=== PATIENT | female | born 1950 | race American Indian/Alaskan Native ===

== ENCOUNTER 2016-09-07 14:09 | Emergency (ER) | payer MEDICARE ==
[2016-09-07 14:28] VITALS: BP 155/101
--- NOTE | 2016-09-07 14:28 | Emergency Department Report ---
Chief Complaint: Back Pain/Injury Stated Complaint: BACK PAIN Time Seen by Provider: 09/07/16 14:24 - HPI History of Present Illness: PT reports left sided back pain x a few days. PT also requesting that an area in her "privates" be checked. - ROS Review of Systems: + back pain - dysuria - Exam Physical Exam: PT looks well, non toxic steady gait no vertebral tenderness, no cva tenderness tom MSE screening note: Focused history and physical exam performed. Due to findings the following was ordered: ED Disposition for MSE Condition: Stable
--- NOTE | 2016-09-11 11:11 | ED Elopement Review ---
ED Pt Elopement review - Call Back decision Pt Call Back Decision: No action required
== END 2016-09-07 20:40 | disposition left against medical advice (07) ==
LOC: ED 14:09
DX: M54.9 Dorsalgia, unspecified (principal); Z53.21 Procedure and treatment not carried out due to patient leaving prior to being seen by health care provider
CPT/HCPCS: 93005; 93010

== ENCOUNTER 2016-09-16 22:10 | Emergency (ER) | payer MEDICARE ==
[2016-09-17 00:10] LABS: Urine Drugs of Abuse Note Disclamer
[2016-09-17 00:19] LABS: Bilirubin,Urine NEG (Negative); Blood,Urine SM (Negative); Ketones,Urine 20 mg/dL (Negative); Leukocyte Esterase,Urine MOD (Negative); Mucus,Urine FEW /HPF; Nitrite,Urine NEG (Negative); Protein,Urine <15 mg/dL mg/dL (Negative)
[2016-09-17 00:24] LABS: Basophils % (Auto) 0.7 % (0.0-1.8); Eosinophils % (Auto) 2.7 % (0.0-4.3); Hematocrit 34.5 % (30.3-42.9); Hemoglobin 11.4 gm/dl (10.1-14.3); Mean Corpuscular HGB Conc 33 % (30-34); Mean Corpuscular Hemoglobin 31 pg (28-32); Mean Corpuscular Volume 95 fl (79-97); Platelet Count 211 K/mm3 (140-440); Red Blood Count 3.66 M/mm3 (3.65-5.03); Red Cell Distribution Width 13.8 % (13.2-15.2); White Blood Count 5.3 K/mm3 (4.5-11.0)
[2016-09-17 00:42] LABS: BUN/Creatinine Ratio 32.72; Calcium 9.7 mg/dL (8.4-10.2); Chloride 105.4 mmol/L (98-107); Potassium 4.2 mmol/L (3.6-5.0)
--- NOTE | 2016-09-17 03:46 | Emergency Department Report ---
ED Psych HPI - General Chief Complaint: Psych Stated Complaint: MH EVAL/HIGH BP Time Seen by Provider: 09/17/16 02:53 Source: patient Mode of arrival: Ambulatory - History of Present Illness Initial Comments: Pt is a 66 yr old female with a h/o schizophrenia and bipolar disorder noncompliant on meds presenting with acute psychosis with daughter. Currently the patient lives alone and has been hearing voices, which she reports is the devil, telling her to do things and telling her the devil is coming for her children. As per daughter the daughter has been wandering around outside for hours and recently called her daughter at 5am and left the house b/c the devil told her to leave the house. Pt denies any SI/HI. Pt lives alone and 30 minutes from her daughter. Pt has no other complaints - Related Data Allergies Allergy/AdvReac Type Severity Reaction Status Date / Time No Known Allergies Allergy Verified 09/07/16 14:29 ED Review of Systems ROS: Stated complaint: MH EVAL/HIGH BP Other details as noted in HPI Comment: All other systems reviewed and negative ED Past Medical Hx - Past Medical History Previous Medical History?: Yes Hx Hypertension: Yes Hx Psychiatric Treatment: Yes (SCHIZO/BIPOLAR) - Surgical History Past Surgical History?: No - Social History Smoking Status: Never Smoker Substance Use Type: None ED Physical Exam - General Limitations: No Limitations General appearance: alert, in no apparent distress - Head Head exam: Present: atraumatic, normocephalic - Eye Eye exam: Present: normal appearance - ENT ENT exam: Present: mucous membranes moist - Neck Neck exam: Present: normal inspection - Respiratory Respiratory exam: Present: normal lung sounds bilaterally. Absent: respiratory distress - Cardiovascular Cardiovascular Exam: Present: regular rate, normal rhythm. Absent: systolic murmur, diastolic murmur, rubs, gallop - GI/Abdominal GI/Abdominal exam: Present: soft, normal bowel sounds - Extremities Exam Extremities exam: Present: normal inspection - Back Exam Back exam: Present: normal inspection - Neurological Exam Neurological exam: Present: alert, oriented X3 - Psychiatric Psychiatric exam: Present: normal mood, flat affect, other (hearing voices, acutely psychotic) - Skin Skin exam: Present: warm, dry, intact, normal color. Absent: rash ED Course Vital Signs 09/16/16 23:08 Temperature 98.1 F Pulse Rate 65 Respiratory 18 Rate Blood Pressure 131/87 O2 Sat by Pulse 98 Oximetry ED Medical Decision Making - Lab Data Result diagrams: 09/17/16 00:10 09/17/16 00:10 - Medical Decision Making Pt made 1013 Critical care attestation.: If time is entered above; I have spent that time in minutes in the direct care of this critically ill patient, excluding procedure time. ED Disposition Condition: Stable Referrals: PRIMARY CARE, [Primary Care Provider] - 3-5 Days
[2016-09-17 05:52] VITALS: BP 124/76
== END 2016-09-17 09:11 ==
LOC: ED 22:10
DX: F23 Brief psychotic disorder (principal); R44.0 Auditory hallucinations; I10 Essential (primary) hypertension; F20.9 Schizophrenia, unspecified; F31.9 Bipolar disorder, unspecified
CPT/HCPCS: 36415; 80048; 80307; 81001; 85025; 99284; G0480; 80320

== ENCOUNTER 2018-09-15 16:35 | Inpatient (IN) | payer MEDICARE ==
[2018-09-15] MEDS ORDERED: CARDIZEM IV ONE (17:04)
--- NOTE | 2018-09-15 17:32 | Emergency Department Report ---
HPI - General Chief Complaint: Chest Pain Time Seen by Provider: 09/15/18 17:02 - HPI HPI: Room 22 The patient is a 68-year-old female presented with a chief complaint of chest pain and palpitations. The patient states prior to arrival she developed bl urred vision and bilateral shoulder pain. Patient states then developed sharp chest pain associated with palpitations and shortness of breath. Patient admits to diaphoresis with her chest pain but denies nausea or vomiting. Patient admits to headache but denies paresthesia. Patient also complains of cramping in both legs. Location: [See above] Duration: [See above] Quality: [See above] Severity: [See above] Modifying factors: [see above] Context: [see above] Mode of transportation: [not driving] ED Past Medical Hx - Past Medical History Previous Medical History?: Yes Hx Hypertension: Yes Hx Psychiatric Treatment: Yes (SCHIZO/BIPOLAR) - Surgical History Additional Surgical History: Uterine prolapse repair - Family History Family history: no significant - Social History Smoking Status: Never Smoker Substance Use Type: None - Medications Home Medications: Home Medications Medication Instructions Recorded Confirmed Last Taken Type Unobtainable 09/17/16 09/17/16 Unknown History ED Review of Systems ROS: Stated complaint: CHEST PAIN Other details as noted in HPI Constitutional: diaphoresis Eyes: vision change ENT: denies: throat pain Respiratory: shortness of breath Cardiovascular: chest pain, palpitations Endocrine: no symptoms reported Gastrointestinal: abdominal pain. denies: nausea, vomiting Genitourinary: denies: dysuria Musculoskeletal: arthralgia Neurological: headache Physical Exam - Physical Exam Vital Signs: Vital Signs 09/15/18 16:55 Temperature 98.2 F Pulse Rate 129 H Respiratory 16 Rate Blood Pressure 110/78 [Right] O2 Sat by Pulse 98 Oximetry Physical Exam: GENERAL: The patient is well-developed well-nourished female lying on stretcher not appearing to be in acute distress. [] HEENT: Normocephalic. Atraumatic. Extraocular motions are intact. Patient has moist mucous membranes. NECK: Supple. Trachea midline CHEST/LUNGS: Clear to auscultation. There is no respiratory distress noted. HEART/CARDIOVASCULAR: Irregularly irregular. There is tachycardia. There is no gallop rub or murmur. ABDOMEN: Abdomen is soft, nontender. Patient has normal bowel sounds. There is no abdominal distention. SKIN: There is no rash. There is no edema. There is no diaphoresis. NEURO: The patient is awake, alert, and oriented. The patient is cooperative. The patient has no focal neurologic deficits. The patient has normal speech. Cranial nerves II through XII grossly intact, no drift MUSCULOSKELETAL: There is no evidence of acute injury. ED Course Vital Signs 09/15/18 16:55 Temperature 98.2 F Pulse Rate 129 H Respiratory 16 Rate Blood Pressure 110/78 [Right] O2 Sat by Pulse 98 Oximetry ED Medical Decision Making - Lab Data Result diagrams: 09/15/18 17:35 09/15/18 17:35 Laboratory Tests 09/15/18 09/15/18 09/15/18 17:35 17:35 17:35 WBC 8.2 RBC 3.28 L Hgb 11.0 Hct 30.7 MCV 94 MCH 34 H MCHC 36 H RDW 14.1 Plt Count 257 Lymph % (Auto) 10.1 L [place] % (Auto) 6.1 Eos % (Auto) 0.0 Baso % (Auto) 0.2 Lymph # 0.8 L [place] # 0.5 Eos # 0.0 Baso # 0.0 Seg Neutrophils % 83.6 H Seg Neutrophils # 6.9 PT 13.5 INR 1.06 APTT 24.4 Sodium 143 Potassium 3.6 Chloride 107.6 H Carbon Dioxide 22 Anion Gap 17 BUN 18 H Creatinine 1.7 H Estimated GFR 36 BUN/Creatinine Ratio 11 Glucose 96 Calcium 9.3 Magnesium 1.60 L Total Creatine Kinase 455 H CK-MB (CK-2) 8.5 H CK-MB (CK-2) Rel Index 1.8 Troponin T 0.065 H NT-Pro-B Natriuret Pep 410.0 TSH Free T4 09/15/18 17:35 WBC RBC Hgb Hct MCV MCH MCHC RDW Plt Count Lymph % (Auto) [place] % (Auto) Eos % (Auto) Baso % (Auto) Lymph # [place] # Eos # Baso # Seg Neutrophils % Seg Neutrophils # PT INR APTT Sodium Potassium Chloride Carbon Dioxide Anion Gap BUN Creatinine Estimated GFR BUN/Creatinine Ratio Glucose Calcium Magnesium Total Creatine Kinase CK-MB (CK-2) CK-MB (CK-2) Rel Index Troponin T NT-Pro-B Natriuret Pep TSH 1.900 Free T4 1.14 - EKG Data -: EKG Interpreted by Me Rate: tachycardia (143 bpm) - EKG Data When compared to previous EKG there are: previous EKG unavailable Interpretation: other (atrial fibrillation with a rapid ventricular response) 09/15/18 18:48 EKG #2 reveals normal sinus rhythm at 82 bpm - Radiology Data Radiology results: image reviewed (chest x-ray) interpreted by me: Chest x-ray-no focal infiltrates, no pneumothorax - Differential Diagnosis atrial fibrillation, ACS, pericarditis Critical care attestation.: If time is entered above; I have spent that time in minutes in the direct care of this critically ill patient, excluding procedure time. ED Disposition Clinical Impression: Chest pain, Atrial fibrillation with rapid ventricular response, Elevated troponin Disposition: OP ADMIT IP TO THIS HOSP Is pt being admited?: Yes Does the pt Need Aspirin: Yes Condition: Fair Instructions: Chest Pain (ED) Time of Disposition: 18:51 (hospitalist paged (Dr Lott))
[2018-09-15] MEDS ORDERED: ASPIRIN PO ONE (17:34)
[2018-09-15] MEDS ORDERED: CARDIZEM/D5W 100MG/100ML 100 MG/100 ML BAG IV SCH (18:00)
[2018-09-15 18:10] LABS: Creatine Kinase MB 8.5 ng/mL (0.0-4.0)
[2018-09-15 18:12] LABS: INR 1.06 (0.87-1.13)
[2018-09-15 18:13] LABS: Calcium 9.3 mg/dL (8.4-10.2); Partial Thromboplastin Time 24.4 Sec. (24.2-36.6)
[2018-09-15] MEDS ORDERED: MAGNESIUM SULFATE 2GM/50ML 2 GM/50 ML BAG IV ONE (18:18)
[2018-09-15 18:20] LABS: Free T4 (Free Thyroxine) 1.14 ng/dL (0.76-1.46)
[2018-09-15 18:47] LABS: Basophils % (Auto) 0.2 % (0.0-1.8); Hematocrit 30.7 % (30.3-42.9); Lymphocytes # (Auto) 0.8 K/mm3 (1.2-5.4); Lymphocytes % (Auto) 10.1 % (13.4-35.0); Mean Corpuscular HGB Conc 36 % (30-34); Mean Corpuscular Volume 94 fl (79-97); Monocytes # (Auto) 0.5 K/mm3 (0.0-0.8); Monocytes % (Auto) 6.1 % (0.0-7.3); Platelet Count 257 K/mm3 (140-440); Red Blood Count 3.28 M/mm3 (3.65-5.03); Red Cell Distribution Width 14.1 % (13.2-15.2)
[2018-09-15 18:52] LABS: Chol/HDL Ratio 2.7 %
--- NOTE | 2018-09-15 19:06 | XRay Report ---
PROCEDURE: Chest. TECHNIQUE: Portable AP view. HISTORY: Chest pain. COMPARISONS: None. FINDINGS: The heart size is normal. There is mild tortuosity and calcification in the thoracic aorta. The lungs are clear and well expanded. There are no pleural effusions. The soft tissues and regional skeleton are unremarkable. IMPRESSION: No evidence of acute disease. This document is electronically signed by Diego Mujica MD., September 15 2018 07:05:08 PM ET
[2018-09-15] MEDS ORDERED: SODIUM CHLORIDE FLUSH SYRINGE 10 ML IV PRN ×2 (20:08)
[2018-09-15] MEDS ORDERED: ZOFRAN IV PRN (20:08)
[2018-09-15] MEDS ORDERED: MILK OF MAGNESIA PO PRN (20:08)
[2018-09-15] MEDS ORDERED: NITROSTAT SL PRN (20:08)
--- NOTE | 2018-09-15 20:19 | History and Physical Report ---
History of Present Illness Date of examination: 09/15/18 Date of admission: 09/15/2018 Chief complaint: Chest pain and palpitation History of present illness: patient is a 68-year-old female with PMHx of hypertension, renal disease, stroke, bipolar disorder who presents to the ER with complaint of chest pain and palpitations. Patient states that her chest pain is an intermittent sharp pain associated with shortness of breath and palpitation, the pain is located on the midsternal area radiating to both shoulder and her back. She also reports blurred vision, seeing floaters and bilateral arm numbness and tingling and leg cramps. Patient reports diaphoresis and headache, she denies nausea or vomiting, denies dizziness, denies headache, denies numbness. In the ER patient's EKG showed A. fib with RVR, her heart rate range between, her symptoms resolve, before the Cardizem drip started she converted to sinus rhythm patient was admitted for further evaluation and treatments. Past History Past Medical History: hypertension, stroke Past Surgical History: No surgical history Social history: no significant social history Family history: no significant family history Medications and Allergies Allergies Allergy/AdvReac Type Severity Reaction Status Date / Time No Known Allergies Allergy Verified 09/07/16 14:29 Home Medications Medication Instructions Recorded Confirmed Last Taken Type Paliperidone Palmitate [Invega 117 mg IM [id number] 09/16/18 09/16/18 08/31/18 History Sustenna] Active Meds: Active Medications Diltiazem HCl (Cardizem/D5w 100mg/100ml) 100 mg in 100 mls @ 5 mls/hr IV TITR ASHLEE; Protocol Review of Systems Cardiovascular: chest pain, palpitations Exam - Constitutional Vitals: Temp Pulse Resp BP Pulse Ox 98.2 F 75 12 150/92 99 09/15/18 16:55 09/15/18 20:00 09/15/18 20:00 09/15/18 20:00 09/15/18 20:00 General appearance: Present: no acute distress - EENT Eyes: Present: EOM intact ENT: hearing intact - Respiratory Respiratory: negative: CTA - Cardiovascular Rhythm: regular Heart Sounds: Present: S1 & S2 - Extremities Extremities: no ischemia, pulses intact, No edema, normal color, Full ROM Peripheral Pulses: within normal limits - Abdominal General gastrointestinal: Present: non-tender, non-distended Female genitourinary: Present: deferred - Rectal Rectal Exam: deferred - Integumentary Integumentary: Present: warm, dry - Musculoskeletal Musculoskeletal: strength equal bilaterally - Psychiatric Psychiatric: appropriate mood/affect - Neurologic Neurologic: moves all extremities Results - Labs CBC & Chem 7: 09/15/18 20:31 09/15/18 20:31 Labs: Laboratory Last Values WBC 8.2 K/mm3 (4.5-11.0) 09/15/18 17:35 RBC 3.28 M/mm3 (3.65-5.03) L 09/15/18 17:35 Hgb 11.0 gm/dl (10.1-14.3) 09/15/18 17:35 Hct 30.7 % (30.3-42.9) 09/15/18 17:35 MCV 94 fl (79-97) 09/15/18 17:35 MCH 34 pg (28-32) H 09/15/18 17:35 MCHC 36 % (30-34) H 09/15/18 17:35 RDW 14.1 % (13.2-15.2) 09/15/18 17:35 Plt Count 257 K/mm3 (140-440) 09/15/18 17:35 Lymph % (Auto) 10.1 % (13.4-35.0) L 09/15/18 17:35 [place] % (Auto) 6.1 % (0.0-7.3) 09/15/18 17:35 Eos % (Auto) 0.0 % (0.0-4.3) 09/15/18 17:35 Baso % (Auto) 0.2 % (0.0-1.8) 09/15/18 17:35 Lymph # 0.8 K/mm3 (1.2-5.4) L 09/15/18 17:35 [place] # 0.5 K/mm3 (0.0-0.8) 09/15/18 17:35 Eos # 0.0 K/mm3 (0.0-0.4) 09/15/18 17:35 Baso # 0.0 K/mm3 (0.0-0.1) 09/15/18 17:35 Seg Neutrophils % 83.6 % (40.0-70.0) H 09/15/18 17:35 Seg Neutrophils # 6.9 K/mm3 (1.8-7.7) 09/15/18 17:35 PT 13.5 Sec. (12.2-14.9) 09/15/18 17:35 INR 1.06 (0.87-1.13) 09/15/18 17:35 APTT 24.4 Sec. (24.2-36.6) 09/15/18 17:35 Sodium 143 mmol/L (137-145) 09/15/18 17:35 Potassium 3.6 mmol/L (3.6-5.0) 09/15/18 17:35 Chloride 107.6 mmol/L (98-107) H 09/15/18 17:35 Carbon Dioxide 22 mmol/L (22-30) 09/15/18 17:35 17 mmol/L 09/15/18 17:35 BUN 18 mg/dL (7-17) H 09/15/18 17:35 1.7 mg/dL (0.7-1.2) H 09/15/18 17:35 Estimated GFR 36 ml/min 09/15/18 17:35 11 % 09/15/18 17:35 Glucose 96 mg/dL (65-100) 09/15/18 17:35 Calcium 9.3 mg/dL (8.4-10.2) 09/15/18 17:35 Magnesium 1.60 mg/dL (1.7-2.3) L 09/15/18 17:35 455 units/L (30-135) H 09/15/18 17:35 CK-MB (CK-2) 8.5 ng/mL (0.0-4.0) H 09/15/18 17:35 CK-MB (CK-2) Rel Index 1.8 (0-4) 09/15/18 17:35 0.065 ng/mL (0.00-0.029) H 09/15/18 17:35 NT-Pro-B Natriuret Pep 410.0 pg/mL (0-900) 09/15/18 17:35 Triglycerides 57 mg/dL (2-149) 09/15/18 17:35 Cholesterol 135 mg/dL (50-199) 09/15/18 17:35 83 mg/dL (50-130) 09/15/18 17:35 50 mg/dL (40-59) 09/15/18 17:35 2.70 % 09/15/18 17:35 TSH 1.900 mlU/mL (0.270-4.200) 09/15/18 17:35 Free T4 1.14 ng/dL (0.76-1.46) 09/15/18 17:35 Assessment and Plan Assessment and plan: 1. A. fib with RVR (resolved) 2. Chest pain (likely due to A. fib) 3. Headache 4. Accelerated Hypertension 5. History of stroke 6. History of kidney disease 7. Bipolar disorder Plan: Patient is admitted to med telemetry for A. fib Consult cardiology for evaluation CT of the brain for headache Hydralazine PRN for hypertension Monitor neuro status Resume home meds DVT prophylaxis with Lovenox Further plan per hospital course Advance Directives: Yes Contraindication Mechanical VTE Prophylaxis: Contraindicated Plan of care discussed with patient/family: Yes
[2018-09-15] MEDS: TYLENOL PO PRN (20:30)
[2018-09-15 20:44] LABS: Basophils % (Auto) 0.4 % (0.0-1.8); Eosinophils % (Auto) 0.2 % (0.0-4.3); Hematocrit 33.9 % (30.3-42.9); Hemoglobin 11.7 gm/dl (10.1-14.3); Lymphocytes # (Auto) 1.2 K/mm3 (1.2-5.4); Lymphocytes % (Auto) 13.4 % (13.4-35.0); Mean Corpuscular HGB Conc 34 % (30-34); Mean Corpuscular Volume 94 fl (79-97); Monocytes # (Auto) 0.6 K/mm3 (0.0-0.8); Monocytes % (Auto) 6.1 % (0.0-7.3); Platelet Count 291 K/mm3 (140-440); Red Blood Count 3.62 M/mm3 (3.65-5.03)
[2018-09-15 21:04] LABS: Calcium 9.8 mg/dL (8.4-10.2)
[2018-09-15] MEDS: PEPCID PO SCH (21:59)
[2018-09-15] MEDS: SODIUM CHLORIDE FLUSH SYRINGE 10 ML IV SCH (22:04)
[2018-09-16] MEDS ORDERED: APRESOLINE IV PRN (02:00)
--- NOTE | 2018-09-16 09:53 | Consultation ---
<WESLEY SEBASTIAN - Last Filed: 09/16/18 11:35> History of Present Illness Consult date: 09/16/18 Requesting physician: MO MOSHER Consult reason: atrial fibrillation (with RVR) History of present illness: Ms. Oshea is a 68 y/o female with a history of hypertension, stroke and bipolar disorder who presented to the ED with chest pain she experienced after moving from one residence to another on Tuesday. She is previously unknown to our practice. She describes the pain as 10/10 and midsternal with radiation to the back and across her chest. She states the episode lasted only seconds, and since then, she has been free of chest pain. She also c/o headache and blurry vision that preceded her chest pain. On arrival to the ED, she was in atrial fibrillation with RVR, which converted to SR after administration of diltiazem. Her initial troponin was .065. Past History Past Medical History: hypertension, renal failure, stroke, other (bipolar disorder) Past Surgical History: No surgical history, total knee replacement Social history: no significant social history Family history: no significant family history Medications and Allergies Allergies Allergy/AdvReac Type Severity Reaction Status Date / Time No Known Allergies Allergy Verified 09/07/16 14:29 Home Medications Medication Instructions Recorded Confirmed Last Taken Type Paliperidone Palmitate [Invega 117 mg IM [id number] 09/16/18 09/16/18 08/31/18 History Sustenna] Active Meds: Active Medications Acetaminophen (Tylenol) 650 mg PO Q4H PRN PRN Reason: Pain MILD(1-3)/Fever >100.5/SCHMIDT Last Admin: 09/15/18 20:30 Dose: 650 mg Documented by: Atorvastatin Calcium (Lipitor) 20 mg PO QHS [facility] Last Admin: 09/15/18 21:59 Dose: 20 mg Documented by: Enoxaparin Sodium (Lovenox) 40 mg SUB-Q QDAY [facility] Famotidine (Pepcid) 20 mg PO BID [facility] Last Admin: 09/15/18 21:59 Dose: 20 mg Documented by: Hydralazine HCl (Apresoline) 10 mg IV Q4H PRN PRN Reason: Hypertension Diltiazem HCl (Cardizem/D5w 100mg/100ml) 100 mg in 100 mls @ 5 mls/hr IV TITR ASHLEE; Protocol Magnesium Hydroxide (Milk Of Magnesia) 30 ml PO Q4H PRN PRN Reason: Constipation Nitroglycerin (Nitrostat) 0.4 mg SL Q5M PRN PRN Reason: Chest Pain Ondansetron HCl (Zofran) 4 mg IV Q8H PRN PRN Reason: Nausea And Vomiting Sodium Chloride (Sodium Chloride Flush Syringe 10 Ml) 10 ml IV BID [facility] Last Admin: 09/15/18 22:04 Dose: 10 ml Documented by: Sodium Chloride (Sodium Chloride Flush Syringe 10 Ml) 10 ml IV PRN PRN PRN Reason: LINE FLUSH Sodium Chloride (Sodium Chloride Flush Syringe 10 Ml) 10 ml IV PRN PRN PRN Reason: LINE FLUSH Review of Systems All systems: negative Eyes: right: other (reports seeing "ball of hair" image) Ears, nose, mouth and throat: deferred Breasts: deferred (Denies chest pain ) Genitourinary Female: other (Deferred) Menstruation: other (Deferred) Rectal: other (Deferred) Musculoskeletal: other Neurological: spasticity (Vision changes ) Physical Examination Last Vital Signs Temp 97.8 F 09/16/18 07:19 Pulse 53 L 09/16/18 07:19 Resp 18 09/16/18 07:19 BP 152/83 09/16/18 07:19 Pulse Ox 98 09/16/18 07:19 General appearance: no acute distress HEENT: Positive: PERRL Cardiac: Positive: Reg Rate and Rhythm Lungs: Positive: Normal Exam Neuro: Positive: Grossly Intact Abdomen: Positive: Unremarkable Female genitourinary: deferred Skin: Positive: Clear Musculoskeletal: Normal Range of Motion Results 09/15/18 20:31 09/15/18 20:31 Cardiac Enzymes 09/15/18 Range/Units 17:35 CK-MB (CK-2) 8.5 H (0.0-4.0) ng/mL Coagulation 09/15/18 Range/Units 17:35 PT 13.5 (12.2-14.9) Sec. INR 1.06 (0.87-1.13) APTT 24.4 (24.2-36.6) Sec. Lipids 09/15/18 Range/Units 17:35 Triglycerides 57 (2-149) mg/dL Cholesterol 135 (50-199) mg/dL HDL Cholesterol 50 (40-59) mg/dL Cholesterol/HDL Ratio 2.70 % CBC 09/15/18 09/15/18 Range/Units 17:35 20:31 WBC 8.2 9.3 (4.5-11.0) K/mm3 RBC 3.28 L 3.62 L (3.65-5.03) M/mm3 Hgb 11.0 11.7 (10.1-14.3) gm/dl Hct 30.7 33.9 (30.3-42.9) % Plt Count 257 291 (140-440) K/mm3 Lymph # 0.8 L 1.2 (1.2-5.4) K/mm3 [place] # 0.5 0.6 (0.0-0.8) K/mm3 Eos # 0.0 0.0 (0.0-0.4) K/mm3 Baso # 0.0 0.0 (0.0-0.1) K/mm3 Comprehensive Metabolic Panel 09/15/18 09/15/18 Range/Units 17:35 20:31 Sodium 143 142 (137-145) mmol/L Potassium 3.6 3.4 L (3.6-5.0) mmol/L Chloride 107.6 H 104.8 (98-107) mmol/L Carbon Dioxide 22 22 (22-30) mmol/L BUN 18 H 16 (7-17) mg/dL Creatinine 1.7 H 1.4 H (0.7-1.2) mg/dL Glucose 96 103 H (65-100) mg/dL Calcium 9.3 9.8 (8.4-10.2) mg/dL - Imaging and Cardiology Echo: pending EKG interpretations - Telemetry EKG Rhythm: Sinus Rhythm - EKG Supraventricular dysrhythmia: atrial fibrillation (Initial EKG - AF with RVR) Assessment and Plan Patient current free of chest pain and remains in sinus rhythm. Continue current cardiac management. Patient has been seen in conjunction with Dr. Alford, who agrees with assessm ent and plan. <JUDIE ALFORD - Last Filed: 09/16/18 11:52> Medications and Allergies Active Meds: Active Medications Acetaminophen (Tylenol) 650 mg PO Q4H PRN PRN Reason: Pain MILD(1-3)/Fever >100.5/SCHMIDT Last Admin: 09/15/18 20:30 Dose: 650 mg Documented by: Atorvastatin Calcium (Lipitor) 20 mg PO QHS [facility] Last Admin: 09/15/18 21:59 Dose: 20 mg Documented by: Enoxaparin Sodium (Lovenox) 40 mg SUB-Q QDAY [facility] Last Admin: 09/16/18 10:55 Dose: 40 mg Documented by: Famotidine (Pepcid) 20 mg PO BID [facility] Last Admin: 09/16/18 10:55 Dose: 20 mg Documented by: Hydralazine HCl (Apresoline) 10 mg IV Q4H PRN PRN Reason: Hypertension Diltiazem HCl (Cardizem/D5w 100mg/100ml) 100 mg in 100 mls @ 5 mls/hr IV TITR S [facility]; Protocol Magnesium Hydroxide (Milk Of Magnesia) 30 ml PO Q4H PRN PRN Reason: Constipation Nitroglycerin (Nitrostat) 0.4 mg SL Q5M PRN PRN Reason: Chest Pain Ondansetron HCl (Zofran) 4 mg IV Q8H PRN PRN Reason: Nausea And Vomiting Sodium Chloride (Sodium Chloride Flush Syringe 10 Ml) 10 ml IV BID [facility] Last Admin: 09/16/18 10:55 Dose: 10 ml Documented by: Sodium Chloride (Sodium Chloride Flush Syringe 10 Ml) 10 ml IV PRN PRN PRN Reason: LINE FLUSH Sodium Chloride (Sodium Chloride Flush Syringe 10 Ml) 10 ml IV PRN PRN PRN Reason: LINE FLUSH Physical Examination Vital Signs Pulse Ox 98 09/15/18 16:24 Results 09/15/18 20:31 09/15/18 20:31 Cardiac Enzymes 09/15/18 Range/Units 17:35 CK-MB (CK-2) 8.5 H (0.0-4.0) ng/mL Coagulation 09/15/18 Range/Units 17:35 PT 13.5 (12.2-14.9) Sec. INR 1.06 (0.87-1.13) APTT 24.4 (24.2-36.6) Sec. Lipids 09/15/18 Range/Units 17:35 Triglycerides 57 (2-149) mg/dL Cholesterol 135 (50-199) mg/dL HDL Cholesterol 50 (40-59) mg/dL Cholesterol/HDL Ratio 2.70 % CBC 09/15/18 09/15/18 Range/Units 17:35 20:31 WBC 8.2 9.3 (4.5-11.0) K/mm3 RBC 3.28 L 3.62 L (3.65-5.03) M/mm3 Hgb 11.0 11.7 (10.1-14.3) gm/dl Hct 30.7 33.9 (30.3-42.9) % Plt Count 257 291 (140-440) K/mm3 Lymph # 0.8 L 1.2 (1.2-5.4) K/mm3 [place] # 0.5 0.6 (0.0-0.8) K/mm3 Eos # 0.0 0.0 (0.0-0.4) K/mm3 Baso # 0.0 0.0 (0.0-0.1) K/mm3 Comprehensive Metabolic Panel 09/15/18 09/15/18 Range/Units 17:35 20:31 Sodium 143 142 (137-145) mmol/L Potassium 3.6 3.4 L (3.6-5.0) mmol/L Chloride 107.6 H 104.8 (98-107) mmol/L Carbon Dioxide 22 22 (22-30) mmol/L BUN 18 H 16 (7-17) mg/dL Creatinine 1.7 H 1.4 H (0.7-1.2) mg/dL Glucose 96 103 H (65-100) mg/dL Calcium 9.3 9.8 (8.4-10.2) mg/dL Assessment and Plan 09/16/2018>patient with chest pain./back pain,helped her daughter move out of apartment presented with transient chest pain,atrial fib with rapid VR,converted to S.R in ER,presently in S.R,chest pain improved.Will get pharmacologic stress MPI along with echo.Continue risk factor modification.patient may not be very compliant with her medication.
[2018-09-16] MEDS: PEPCID PO SCH ×2 (10:55→22:01)
[2018-09-16] MEDS: SODIUM CHLORIDE FLUSH SYRINGE 10 ML IV SCH ×2 (10:55→22:01)
[2018-09-16] MEDS: LOVENOX SUB-Q SCH (10:55)
--- NOTE | 2018-09-16 13:12 | Progress Note ---
Assessment and Plan Assessment and plan: A. fib with RVR. Cont. tele monitoring. F/U ECHO. Cardiology following Chest pain. F/U stress test Accelerated Hypertension. Cont current antihypertensive meds History of stroke History of kidney disease Bipolar disorder History Interval history: Ms. Oshea is a 68 y/o female with a history of hypertension, stroke and bipolar disorder who presented to the ED with chest pain she experienced after moving from one residence to another on Tuesday. On arrival to the ED, she was in atrial fibrillation with RVR, which converted to SR after administration of diltiazem. Her initial troponin was .065. Hospitalist Physical - Constitutional Vitals: Temp Pulse Resp BP Pulse Ox 97.7 F 61 18 160/94 100 09/16/18 11:17 09/16/18 11:17 09/16/18 11:17 09/16/18 11:17 09/16/18 11:17 General appearance: Present: no acute distress - EENT Eyes: Present: PERRL, EOM intact ENT: hearing intact, clear oral mucosa, dentition normal - Neck Neck: Present: supple, normal ROM - Respiratory Respiratory effort: normal Respiratory: bilateral: CTA - Cardiovascular Rhythm: regular Heart Sounds: Present: S1 & S2. Absent: gallop, rub - Extremities Extremities: no ischemia, No edema, Full ROM - Abdominal General gastrointestinal: soft, non-tender, non-distended, normal bowel sounds - Integumentary Integumentary: Present: clear, warm, dry - Neurologic Neurologic: CNII-XII intact, moves all extremities Results - Labs CBC & Chem 7: 09/15/18 20:31 09/15/18 20:31 Labs: Laboratory Last Values WBC 9.3 K/mm3 (4.5-11.0) 09/15/18 20:31 RBC 3.62 M/mm3 (3.65-5.03) L 09/15/18 20:31 Hgb 11.7 gm/dl (10.1-14.3) 09/15/18 20:31 Hct 33.9 % (30.3-42.9) 09/15/18 20:31 MCV 94 fl (79-97) 09/15/18 20:31 MCH 32 pg (28-32) 09/15/18 20:31 MCHC 34 % (30-34) 09/15/18 20:31 RDW 14.0 % (13.2-15.2) 09/15/18 20:31 Plt Count 291 K/mm3 (140-440) 09/15/18 20:31 Lymph % (Auto) 13.4 % (13.4-35.0) 09/15/18 20:31 [place] % (Auto) 6.1 % (0.0-7.3) 09/15/18 20:31 Eos % (Auto) 0.2 % (0.0-4.3) 09/15/18 20:31 Baso % (Auto) 0.4 % (0.0-1.8) 09/15/18 20:31 Lymph # 1.2 K/mm3 (1.2-5.4) 09/15/18 20:31 [place] # 0.6 K/mm3 (0.0-0.8) 09/15/18 20: Eos # 0.0 K/mm3 (0.0-0.4) 09/15/18 20:31 Baso # 0.0 K/mm3 (0.0-0.1) 09/15/18 20:31 Seg Neutrophils % 79.9 % (40.0-70.0) H 09/15/18 20:31 Seg Neutrophils # 7.4 K/mm3 (1.8-7.7) 09/15/18 20:31 PT 13.5 Sec. (12.2-14.9) 09/15/18 17:35 INR 1.06 (0.87-1.13) 09/15/18 17:35 APTT 24.4 Sec. (24.2-36.6) 09/15/18 17:35 Sodium 142 mmol/L (137-145) 09/15/18 20:31 Potassium 3.4 mmol/L (3.6-5.0) L 09/15/18 20:31 Chloride 104.8 mmol/L (98-107) 09/15/18 20:31 Carbon Dioxide 22 mmol/L (22-30) 09/15/18 20:31 19 mmol/L 09/15/18 20:31 BUN 16 mg/dL (7-17) 09/15/18 20:31 1.4 mg/dL (0.7-1.2) H 09/15/18 20:31 Estimated GFR 45 ml/min 09/15/18 20:31 11 % 09/15/18 20:31 Glucose 103 mg/dL (65-100) H 09/15/18 20:31 Calcium 9.8 mg/dL (8.4-10.2) 09/15/18 20:31 Magnesium 1.60 mg/dL (1.7-2.3) L 09/15/18 17:35 455 units/L (30-135) H 09/15/18 17:35 CK-MB (CK-2) 8.5 ng/mL (0.0-4.0) H 09/15/18 17:35 CK-MB (CK-2) Rel Index 1.8 (0-4) 09/15/18 17:35 0.065 ng/mL (0.00-0.029) H 09/15/18 17:35 NT-Pro-B Natriuret Pep 410.0 pg/mL (0-900) 09/15/18 17:35 Triglycerides 57 mg/dL (2-149) 09/15/18 17:35 Cholesterol 135 mg/dL (50-199) 09/15/18 17:35 83 mg/dL (50-130) 09/15/18 17:35 50 mg/dL (40-59) 09/15/18 17:35 2.70 % 09/15/18 17:35 TSH 1.900 mlU/mL (0.270-4.200) 09/15/18 17:35 Free T4 1.14 ng/dL (0.76-1.46) 09/15/18 17:35 Active Medications - Current Medications Current Medications: Generic Name Dose Route Start Last Admin Trade Name Freq PRN Reason Stop Dose Admin Acetaminophen 650 mg 09/15/18 20:08 09/15/18 20:30 Tylenol PO 650 mg Q4H PRN Administration Pain MILD(1-3)/Fever >100.5/SCHMIDT Atorvastatin Calcium 20 mg 09/15/18 22:00 09/15/18 21:59 Lipitor PO 20 mg QHS ASHLEE Administration Enoxaparin Sodium 40 mg 09/16/18 10:00 09/16/18 10:55 Lovenox SUB-Q 40 mg QDAY ASHLEE Administration Famotidine 20 mg 09/15/18 22:00 09/16/18 10:55 Pepcid PO 20 mg BID ASHLEE Administration Hydralazine HCl 10 mg 09/16/18 02:00 Apresoline IV Q4H PRN Hypertension Diltiazem HCl 100 mg in 100 mls @ 5 mls/hr 09/15/18 18:00 Cardizem/D5w 100mg/100ml IV TITR ASHLEE Protocol 5 MG/HR Magnesium Hydroxide 30 ml 09/15/18 20:08 Milk Of Magnesia PO Q4H PRN Constipation Nitroglycerin 0.4 mg 09/15/18 20:08 Nitrostat SL Q5M PRN Chest Pain Ondansetron HCl 4 mg 09/15/18 20:08 Zofran IV Q8H PRN Nausea And Vomiting Sodium Chloride 10 ml 09/15/18 22:00 09/16/18 10:55 Sodium Chloride Flush Syringe 10 Ml IV 10 ml BID ASHLEE Administration Sodium Chloride 10 ml 09/15/18 20:08 Sodium Chloride Flush Syringe 10 Ml IV PRN PRN LINE FLUSH Sodium Chloride 10 ml 09/15/18 20:08 Sodium Chloride Flush Syringe 10 Ml IV PRN PRN LINE FLUSH
[2018-09-16] MEDS ORDERED: BENADRYL PO ONE (22:15)
--- NOTE | 2018-09-17 09:11 | Cat Scan Report ---
PROCEDURE: CT HEAD/BRAIN WO CON TECHNIQUE: Computerized tomography of the head was performed without contrast material. CT DOSE LENGTH PRODUCT: 805.4 mGycm HISTORY: Headache, blurry vision, seeing floaters COMPARISONS: None . FINDINGS: The ventricles, cisterns and sulci are within normal limits. No intra parenchymal or extra-axial mass , hemorrhage, or mass effect. De Guzman and white-matter differentiation is within normal limits for hardik ent age. Basal ganglia mineralization noted. Normal spherical shape of the globes. No significant abnormality involving the imaged portions of th e paranasal sinuses and mastoid air cells. No skull or facial fracture visualized. IMPRESSION: No acute intracranial abnormality. Consider additional imaging for worsening/persistent symptoms. This document is electronically signed by Diego Rodriguez MD., September 17 2018 09:09:27 AM ET
--- NOTE | 2018-09-17 09:38 | Progress Note ---
Assessment and Plan Await echo results, which may guide further recommendations. Pharmacologic stress test scheduled for tomorrow AM. Continue current cardiac management. Patient has been seen in conjunction with Dr. Anglin, who agrees with assessment and plan. - Patient Problems (1) Atrial fibrillation with rapid ventricular response Current Visit: Yes Status: Acute (2) Chest pain Current Visit: Yes Status: Acute (3) Elevated troponin Current Visit: Yes Status: Acute (4) Chronic kidney disease Current Visit: Yes Status: Chronic Subjective Date of service: 09/17/18 Interval history: Patient is sitting up in bed in [facility]. Reports one brief episode of left-sided chest pain rated as 5/10. No other complaints. No afib noted on telemetry, though rate did drop into 40s early this AM; otherwise, SR with PACs in 60s noted. Objective Last Vital Signs Temp 98.1 F 09/17/18 07:46 Pulse 59 L 09/17/18 07:46 Resp 20 09/17/18 07:46 BP 130/84 09/17/18 07:46 Pulse Ox 99 09/17/18 07:46 - Physical Examination General: No Apparent Distress HEENT: Positive: PERRL Cardiac: Positive: Reg Rate and Rhythm Neuro: Positive: Grossly Intact Abdomen: Positive: Unremarkable Skin: Positive: Clear Musculoskeletal: Normal Range of Motion Extremities: Present: normal - Imaging and Cardiology Stress echo: pending Echo: pending - Telemetry EKG Rhythm: Sinus Rhythm (with occasional SB episodes)
[2018-09-17] MEDS: SODIUM CHLORIDE FLUSH SYRINGE 10 ML IV SCH ×2 (10:22→21:22)
[2018-09-17] MEDS: LOVENOX SUB-Q SCH (10:22)
[2018-09-17] MEDS: PEPCID PO SCH ×2 (10:22→21:21)
--- NOTE | 2018-09-17 18:11 | Progress Note ---
Assessment and Plan Assessment and plan: A. fib with RVR. Cont. tele monitoring. F/U ECHO. Cardiology following Chest pain. Stress test in am Accelerated Hypertension. Cont current antihypertensive meds History of stroke History of kidney disease Bipolar disorder History Interval history: Ms. Oshea is a 68 y/o female with a history of hypertension, stroke and bipolar disorder who presented to the ED with chest pain she experienced after moving from one residence to another on Tuesday. On arrival to the ED, she was in atrial fibrillation with RVR, which converted to SR after administration of diltiazem. Her initial troponin was .065. No new issues overnight Hospitalist Physical - Constitutional Vitals: Temp Pulse Resp BP Pulse Ox 98.0 F 68 20 151/89 99 09/17/18 16:22 09/17/18 16:22 09/17/18 16:22 09/17/18 16:22 09/17/18 16:22 General appearance: Present: no acute distress - EENT Eyes: Present: PERRL, EOM intact ENT: hearing intact, clear oral mucosa, dentition normal - Neck Neck: Present: supple, normal ROM - Respiratory Respiratory effort: normal Respiratory: bilateral: CTA - Cardiovascular Rhythm: regular Heart Sounds: Present: S1 & S2. Absent: gallop, rub - Extremities Extremities: no ischemia, No edema, Full ROM - Abdominal General gastrointestinal: soft, non-tender, non-distended, normal bowel sounds - Integumentary Integumentary: Present: clear, warm, dry - Neurologic Neurologic: CNII-XII intact, moves all extremities Results - Labs CBC & Chem 7: 09/15/18 20:31 09/15/18 20:31 Labs: Laboratory Last Values WBC 9.3 K/mm3 (4.5-11.0) 09/15/18 20:31 RBC 3.62 M/mm3 (3.65-5.03) L 09/15/18 20:31 Hgb 11.7 gm/dl (10.1-14.3) 09/15/18 20:31 Hct 33.9 % (30.3-42.9) 09/15/18 20:31 MCV 94 fl (79-97) 09/15/18 20:31 MCH 32 pg (28-32) 09/15/18 20:31 MCHC 34 % (30-34) 09/15/18 20:31 RDW 14.0 % (13.2-15.2) 09/15/18 20:31 Plt Count 291 K/mm3 (140-440) 09/15/18 20:31 Lymph % (Auto) 13.4 % (13.4-35.0) 09/15/18 20:31 [place] % (Auto) 6.1 % (0.0-7.3) 09/15/18 20:31 Eos % (Auto) 0.2 % (0.0-4.3) 09/15/18 20:31 Baso % (Auto) 0.4 % (0.0-1.8) 09/15/18 20:31 Lymph # 1.2 K/mm3 (1.2-5.4) 09/15/18 20:31 [place] # 0.6 K/mm3 (0.0-0.8) 09/15/18 20: Eos # 0.0 K/mm3 (0.0-0.4) 09/15/18 20: Baso # 0.0 K/mm3 (0.0-0.1) 09/15/18 20:31 Seg Neutrophils % 79.9 % (40.0-70.0) H 09/15/18 20:31 Seg Neutrophils # 7.4 K/mm3 (1.8-7.7) 09/15/18 20:31 PT 13.5 Sec. (12.2-14.9) 09/15/18 17:35 INR 1.06 (0.87-1.13) 09/15/18 17:35 APTT 24.4 Sec. (24.2-36.6) 09/15/18 17:35 Sodium 142 mmol/L (137-145) 09/15/18 20:31 Potassium 3.4 mmol/L (3.6-5.0) L 09/15/18 20:31 Chloride 104.8 mmol/L (98-107) 09/15/18 20:31 Carbon Dioxide 22 mmol/L (22-30) 09/15/18 20:31 19 mmol/L 09/15/18 20:31 BUN 16 mg/dL (7-17) 09/15/18 20:31 1.4 mg/dL (0.7-1.2) H 09/15/18 20:31 Estimated GFR 45 ml/min 09/15/18 20:31 11 % 09/15/18 20:31 Glucose 103 mg/dL (65-100) H 09/15/18 20:31 Calcium 9.8 mg/dL (8.4-10.2) 09/15/18 20:31 Magnesium 1.60 mg/dL (1.7-2.3) L 09/15/18 17:35 455 units/L (30-135) H 09/15/18 17:35 CK-MB (CK-2) 8.5 ng/mL (0.0-4.0) H 09/15/18 17:35 CK-MB (CK-2) Rel Index 1.8 (0-4) 09/15/18 17:35 0.065 ng/mL (0.00-0.029) H 09/15/18 17:35 NT-Pro-B Natriuret Pep 410.0 pg/mL (0-900) 09/15/18 17:35 Triglycerides 57 mg/dL (2-149) 09/15/18 17:35 Cholesterol 135 mg/dL (50-199) 09/15/18 17:35 83 mg/dL (50-130) 09/15/18 17:35 50 mg/dL (40-59) 09/15/18 17:35 2.70 % 09/15/18 17:35 TSH 1.900 mlU/mL (0.270-4.200) 09/15/18 17:35 Free T4 1.14 ng/dL (0.76-1.46) 09/15/18 17:35 Active Medications - Current Medications Current Medications: Generic Name Dose Route Start Last Admin Trade Name Freq PRN Reason Stop Dose Admin Acetaminophen 650 mg 09/15/18 20:08 09/15/18 20:30 Tylenol PO 650 mg Q4H PRN Administration Pain MILD(1-3)/Fever >100.5/SCHMIDT Atorvastatin Calcium 20 mg 09/15/18 22:00 09/16/18 22:01 Lipitor PO 20 mg QHS ASHLEE Administration Enoxaparin Sodium 40 mg 09/16/18 10:00 09/17/18 10:22 Lovenox SUB-Q 40 mg QDAY ASHLEE Administration Famotidine 20 mg 09/15/18 22:00 09/17/18 10:22 Pepcid PO 20 mg BID ASHLEE Administration Hydralazine HCl 10 mg 09/16/18 02:00 Apresoline IV Q4H PRN Hypertension Diltiazem HCl 100 mg in 100 mls @ 5 mls/hr 09/15/18 18:00 Cardizem/D5w 100mg/100ml IV TITR ASHLEE Protocol 5 MG/HR Magnesium Hydroxide 30 ml 09/15/18 20:08 Milk Of Magnesia PO Q4H PRN Constipation Nitroglycerin 0.4 mg 09/15/18 20:08 09/16/18 22:01 Nitrostat SL 0.4 mg Q5M PRN Administration Chest Pain Ondansetron HCl 4 mg 09/15/18 20:08 Zofran IV Q8H PRN Nausea And Vomiting Sodium Chloride 10 ml 09/15/18 22:00 09/17/18 10:22 Sodium Chloride Flush Syringe 10 Ml IV 10 ml BID ASHLEE Administration Sodium Chloride 10 ml 09/15/18 20:08 Sodium Chloride Flush Syringe 10 Ml IV PRN PRN LINE FLUSH Sodium Chloride 10 ml 09/15/18 20:08 Sodium Chloride Flush Syringe 10 Ml IV PRN PRN LINE FLUSH
[2018-09-17] MEDS ORDERED: BENADRYL PO PRN (20:03)
[2018-09-17] MEDS: TYLENOL PO PRN (21:22)
[2018-09-18] MEDS ORDERED: LEXISCAN IV ONE ×2 (07:04→07:15)
--- NOTE | 2018-09-18 10:43 | Progress Note ---
Assessment and Plan S/p lexiscan MPI stress test this AM which was negative for ischemia, EF 70%. Echo pending. Although pt's episode of AFib appears transient in nature with no reoccurrence of AFib since initial presentation, pt may benefit from initiation of systemic AC in setting of high CHADS score. Will initiate Eliquis and consider discontinuation as OP if there is no evidence of reoccurrence of AFib in the future. Pt currently in sinus bradycardia and thus will not initiate any scheduled AV marquise blocking agents at this time. Pending echo reveals no gross abnormalities pt may discharge home from cardiology standpoint. Recommend pt follow up in our office with Dr. Anglin within 1-2 weeks of hospital discharge ([phone]). The patient has been seen in conjunction with Dr. Zazueta who agrees with the assessment and plan of care. - Patient Problems (1) Transient atrial fibrillation Current Visit: Yes Status: Acute (2) Chest pain Current Visit: Yes Status: Resolved (3) Elevated troponin Current Visit: Yes Status: Acute (4) HTN (hypertension) Current Visit: Yes Status: Chronic (5) History of CVA (cerebrovascular accident) Current Visit: Yes Status: Chronic Subjective Date of service: 09/18/18 Principal diagnosis: AFib; cp Interval history: pt for stress test today. no current cardiac complaints. In SR/SB on telemetry overnight. Objective Last Vital Signs Temp 98.0 F 09/18/18 07:21 Pulse 47 L 09/18/18 04:13 Resp 18 09/18/18 07:21 BP 148/76 09/18/18 07:21 Pulse Ox 100 09/18/18 07:48 - Physical Examination General: No Apparent Distress HEENT: Positive: PERRL Neck: Positive: neck supple, trachea midline Cardiac: Positive: Reg Rate and Rhythm, S1/S2 Lungs: Positive: Decreased Breath Sounds Neuro: Positive: Grossly Intact Abdomen: Positive: Unremarkable Skin: Positive: Clear Musculoskeletal: Normal Range of Motion Extremities: Present: normal - Imaging and Cardiology Pharmacologic stress test: pending Echo: pending - Telemetry EKG Rhythm: Sinus Rhythm
[2018-09-18] MEDS ORDERED: MAGNESIUM SULFATE 2GM/50ML 2 GM/50 ML BAG IV ONE (11:00)
[2018-09-18] MEDS: SODIUM CHLORIDE FLUSH SYRINGE 10 ML IV SCH (13:05)
[2018-09-18] MEDS: PEPCID PO SCH (13:05)
--- NOTE | 2018-09-18 13:26 | Discharge Summary ---
Providers - Providers Date of Admission: 09/15/18 20:08 Attending physician: ALTHEA SAMS MD 09/15/18 Consult to Cardiac Rehabilitation [CONS] Routine Reason For Exam: Phase I 09/15/18 20:09 Consult to Cardiology [CONS] Routine Consulting Provider: RESHMA BARRAZA Reason For Exam: Afib with RVR Primary care physician: SHASHI SCHOFIELD Hospitalization Reason for admission: Chest pain, a fib, elevated troponin (chronic) Condition: Stable Pertinent studies: Stress test; negative for acute ischemia Echo; preliminary result is normal Hospital course: patient is a 68-year-old female with PMHx of hypertension, renal disease, stroke, bipolar disorder who presents to the ER with complaint of chest pain and palpitations. Patient states that her chest pain is an intermittent sharp pain associated with shortness of breath and palpitation, the pain is located on the midsternal area radiating to both shoulder and her back. She also reports blurred vision, seeing floaters and bilateral arm numbness and tingling and leg cramps. Patient reports diaphoresis and headache, she denies nausea or vomiting, denies dizziness, denies headache, denies numbness. In the ER patient's EKG showed A. fib with RVR, her heart rate range between, her symptoms resolve, before the Cardizem drip started she converted to sinus rhythm patient was admitted for further evaluation and treatments. Patient was admitted to the floor and was placed on eliquis. Patient has elevated troponin, discussed his cardiology and did stress test and echo which was unremarkable. Chest pain resolved. Patient has sinus bradycardia and no need of AV blocking agents. patient scheduled to see [facility] in 2weeks. Patient is hemodynamically stable at the time of discharge. Appropriate medication scripts were given as of discharge. Discussed the management plan with the patient her family member. Disposition: DC-01 TO HOME OR SELFCARE Time spent for discharge: 32 minutes - Discharge Diagnoses (1) Atrial fibrillation with rapid ventricular response Status: Acute (2) Elevated troponin Status: Acute (3) Transient atrial fibrillation Status: Acute (4) HTN (hypertension) Status: Chronic (5) History of CVA (cerebrovascular accident) Status: Chronic (6) Chest pain Status: Resolved (7) Acute kidney injury Status: Acute Comment: Likely due to vasomotor nephropathy Core Measure Documentation - Palliative Care Palliative Care/ Comfort Measures: Not Applicable - Core Measures Any of the following diagnoses?: none Exam - Physical Exam Narrative exam: Not in cardiopulmonary distress. The patient appeared well nourished and normally developed. Vital signs as documented. Head exam is unremarkable. No scleral icterus . Neck is without jugular venous distension, thyromegaly, or carotid bruits. Lungs are clear to auscultation. Cardiac exam reveals regular rate and Rhythm. Abdominal exam reveals normal bowel sounds. Extremities are nonedematous and both femoral and pedal pulses are normal. BARIATRIC PHYSICIAN: Alert and oriented 3. No focal weakness. - Constitutional Vitals: Temp Pulse Resp BP Pulse Ox 98.0 F 74 14 139/89 97 09/18/18 07:21 09/18/18 10:00 09/18/18 10:00 09/18/18 11:44 09/18/18 10:00 Plan Activity: no restrictions Weight Bearing Status: Full Weight Bearing Diet: low salt Follow up with: SHASHI SCHOFIELD MD [Primary Care Provider] - 7 Days Prescriptions: Apixaban [Eliquis] 5 mg PO Q12HR #60 tablet
[2018-09-18 13:32] VITALS: BP 156/102
[2018-09-18] MEDS ORDERED: ELIQUIS PO SCH (22:00)
--- NOTE | 2018-09-19 14:12 | Treadmill Report ---
NUCLEAR CARDIAC IMAGING INDICATION FOR PROCEDURE: Chest pain. Informed consent was obtained. Vasodilator stress was achieved with the intravenous administration of 0.4 mg of Lexiscan per protocol. Rest and stress nuclear cardiac imaging was performed following intravenous administration of technetium-99m Myoview per protocol. Images were acquired in a 180-degree arc from 45 degrees HAMMOND to 45 degrees LPO. After data acquisition and reconstruction, the images were processed and reoriented into the vertical long, horizontal long, and horizontal short axis slices. A polar color map of the horizontal short axis slices was generated and reviewed. The rotating planar images reviewed in cinematic format on the computer console. Gated SPECT imaging demonstrates a post-stress left ventricular ejection fraction of 70% with normal wall motion. Myocardial perfusion imaging demonstrates no significant cavity change between stress and rest. There are apical and septal perfusion abnormalities noted on the stress acquisition. These defects; however, are more pronounced on the resting study. No significant reversible stress induced perfusion defects are seen. Nuclear cardiac imaging demonstrates grossly normal post-stress left ventricular systolic function. Although prior apical and septal myocardial infarction cannot be definitely excluded, the imaging characteristics of these perfusion abnormalities suggest that they are artifactual in origin. A significant degree of ischemia is not seen. [facility]# [id number] BASIL/JEFF CARBAJAL
== END 2018-09-18 19:59 | disposition home or self-care (01) | DRG 308 ==
LOC: ED 16:35 → 4A 20:08
PROVIDERS: ADMIT Internal Medicine; ATTEND Internal Medicine
DX: I48.91 Unspecified atrial fibrillation (principal); N17.0 Acute kidney failure with tubular necrosis; R07.9 Chest pain, unspecified; R00.1 Bradycardia, unspecified; Z96.659 Presence of unspecified artificial knee joint; F31.9 Bipolar disorder, unspecified; N18.9 Chronic kidney disease, unspecified; I12.9 Hypertensive chronic kidney disease with stage 1 through stage 4 chronic kidney disease, or unspecified chronic kidney disease; Z86.73 Personal history of transient ischemic attack (TIA), and cerebral infarction without residual deficits
CPT/HCPCS: 36415; 70450; 71045; 78452; 80048; 80061; 82550; 82553; 82962; 83735; 83880; 84439; 84443; 84484; 85025; 85610; 85730; 93005; 93010; 93017; 93306; 96365; G0378; A9270-GY; A9502; J0360; J1650; J2785; J3475